=== PATIENT | female | born 1980 | race Caucasian/White ===

== ENCOUNTER 2016-09-11 13:56 | Inpatient (IN) ==
[2016-09-11] MEDS ORDERED: PROMETHAZINE 25 MG/1 ML VIAL IM ONE (14:45)
[2016-09-11] MEDS ORDERED: LACTATED RINGERS 250 ML IV PRN (14:45)
[2016-09-11] MEDS ORDERED: LACTATED RINGERS 1,000 ML IV ONE (14:45)
[2016-09-11] MEDS ORDERED: diphenhydrAMINE 50 MG/1 ML VIAL IV PRN ×2 (14:45)
[2016-09-11] MEDS ORDERED: hydrOXYzine HCL 25 MG/1 ML VIAL IM PRN (14:45)
[2016-09-11] MEDS ORDERED: ePHEDrine 50 MG/ML AMP IV PRN (14:45)
[2016-09-11] MEDS ORDERED: ONDANSETRON 4 MG/2 ML VIAL IV ONE (14:45)
[2016-09-11] MEDS ORDERED: fentaNYL 2 MCG/ROPIV 0.2% EPID 150 ML EPIDURAL SCH (14:45)
[2016-09-11] MEDS ORDERED: BUTORPHANOL 2 MG/ML VIAL IV PRN (15:00)
[2016-09-11] MEDS ORDERED: LACTATED RINGERS 1,000 ML IV SCH (15:00)
[2016-09-11] MEDS ORDERED: MEPERIDINE 50 MG/1 ML VIAL IV PRN (15:00)
[2016-09-11 15:19] LABS: Basophils % 0.3 % (0.0-0.8); Eosinophils # 0.1 10*3/uL (0.0-0.87); Eosinophils % 0.5 % (0.00-10.9); Hematocrit 33.5 VOL% (35.7-47.0); Hemoglobin 10.9 GM/DL (12.0-16.0); Immature Granulocytes % 1.2 %; Immature Granulocytes Absolute 0.13 #; Lymphocytes # 1.7 10*3/uL (1.4-4.0); Lymphocytes % 15.5 % (21.3-54.2); Mean Corpuscular HGB Conc 32.5 GM/DL (32-36); Mean Corpuscular Hemoglobin 26 PG (27-34); Mean Corpuscular Volume 80.3 FL (87-102); Monocytes # 0.6 10*3/uL (0.11-0.8); Monocytes % 5.3 % (1.7-12.7); Neutrophils # 8.3 10*3/uL (1.4-7.4); Neutrophils % 77.2 % (38.7-73.9); Platelet Count 207 T/CUMM (130-400); Red Blood Count 4.17 MC/CUMM (3.8-5.5); Red Cell Distribution Width 14.1 % (9.3-17.3); White Blood Count 10.8 T/CUMM (4-12)
[2016-09-11 15:30] LABS: INR 0.9; PT Patient Result 9.7 SECS; Partial Thromboplastin Time 28.5 SECS (0-40)
[2016-09-11] MEDS: LACTATED RINGERS 1,000 ML IV SCH ×2 (15:30→18:50)
[2016-09-11 15:48] LABS: Alanine Aminotransferase 13 U/L (13-56); Albumin 2.9 G/DL (3.4-5.0); Alkaline Phosphatase 143 U/L (45-117); Aspartate Amino Transferase 12 U/L (0-37); Bilirubin,Total < 0.39 MG/DL (0.2-1.0); Blood Urea Nitrogen 5 MG/DL (7-18); Calcium 8.5 MG/DL (8.5-10.1); Glucose 77 MG/DL (74-106); Osmolality,Calculated 278.1 MOS/KG (273-304); Potassium 4.1 MMOL/L (3.5-5.1); Sodium 142 MMOL/L (136-145); Uric Acid 4.5 MG/DL (2.6-6.0)
[2016-09-11] MEDS: ONDANSETRON 4 MG/2 ML VIAL IV PRN ×2 (16:03→21:27)
--- NOTE | 2016-09-11 16:26 | OB/GYN History & Physical ---
History of Present Illness Chief complaint: In with c/o SROM History of present illness: Ms. Odell is a 35 year old female who is a primigravida. ALISSON 09/20/16 estimated gestational age of 38 and 4 weeks who presents to the labor department with spontaneous rupture of membranes. The risk and benefits have been thoroughly discussed with this patient and significant other and plan of care has been discussed with Dr. Daniel in all parties are in agreement with plan. Patient received her care at [facility] [place], she received routine care and her course was uneventful. labs she is a positive, rubella immune, serologies nonreactive, hepatitis B negative, HIV negative, GBS culture negative. Review of systems is negative with the exception of above. The patient also has a history of hypertension which was controlled with antihypertensives. Home Medications Medication Instructions Recorded Confirmed Type Folic Acid Tab 1 tablet PO DAILY 08/28/16 08/28/16 History Labetalol Tab [Trandate Tab] 1 tablet PO DAILY 08/28/16 08/28/16 History Pnv No.122/Iron/Folic Acid 1 tablet PO DAILY 08/28/16 08/28/16 History [ Multi Tablet] Propranolol Tab [Inderal Tab] 1 tablet PO DAILY 08/28/16 08/28/16 History Allergies Allergy/AdvReac Type Severity Reaction Status Date / Time Sulfa (Sulfonamide Allergy Severe RASH Verified 08/28/16 16:16 Antibiotics) 12 point system: reviewed and no additional remarkable complaints except as stated Medical,Surgical,& Family Hx - Medical History Cardio: History of: Hypertension - Surgical History Additional Surgical History: femoral hernia repair 2000 - Family History Family History: Reports;: Family Hypertension (parents) - Social History Smoking Status: Never smoker Marital Status: Lives With:: Spouse Functional capacity: independent ambulation 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 General appearance: no acute distress - Antepartum / Post Antepartum Exam Cervix -Dilatation: 2 cm Effacement: 70% Station: -2 Rupture: SROM with clear fluid Breast: bilateral: normal Abdomen obstetrics: Present: bowel sounds normal Vagina: Present: normal moisture Uterus exam: Present: enlarged Anus/Rectum: Present: normal perianal skin - Respiratory Respiratory exam: Present: clear to auscultation bilaterally - Cardiovascular Cardiovascular exam: Present: regular rate and rhythm - GI/Abdominal GI/Abdominal exam: Present: normal bowel sounds, soft - Extremities Exam Extremities exam: Present: normal inspection - Neurological Exam Neurological exam: Present: alert, oriented X3 - Psychiatric Psychiatric exam: Present: normal affect, normal mood - Skin Skin exam: Present: normal color, warm Assessment and Plan (1) Term Status: Acute Assessment and plan: Admit IV fluids IV Pitocin per protocol Epidural if desired IV abx if appropriate Anticipate Current Visit: Yes (2) Spontaneous rupture of membranes Status: Acute Assessment and plan: Same as above Current Visit: Yes Results - Labs CBC & BMP: 09/11/16 15:10 09/11/16 15:10 Quality Measures - VTE Contraindication to Pharmacological VTE Prophylaxis: Clinical assessment deems Pt at low risk, no prophalaxis needed
[2016-09-11] MEDS ORDERED: OXYTOCIN 10 UNIT/ML VIAL IM ONE (16:36)
[2016-09-11] MEDS ORDERED: CITRIC ACID/SODIUM CITRATE 30 ML UDCUP ONE (16:48)
[2016-09-11] MEDS ORDERED: FAMOTIDINE 20 MG/2 ML VIAL IV ONE (16:49)
[2016-09-11] MEDS ORDERED: CITRIC ACID/SODIUM CITRATE 30 ML UDCUP PO ONE (16:52)
[2016-09-11] MEDS ORDERED: OXYTOCIN/LR 20 UNIT/1,000 ML BAG IV SCH (19:00)
[2016-09-12] MEDS ORDERED: METHYLERGONOVINE 0.2 MG/1 ML AMP ONE (00:29)
[2016-09-12] MEDS ORDERED: LIDOCAINE 1% 50 ML VIAL ONE (00:29)
[2016-09-12] MEDS ORDERED: miSOPROStol 200 MCG TABLET ONE (00:29)
[2016-09-12] MEDS ORDERED: OXYTOCIN/LR 30 UNIT/1,000 ML BAG IV STA (04:14)
[2016-09-12] MEDS ORDERED: SODIUM CHLORIDE 0.9% 250 ML IV PRN (04:19)
[2016-09-12] MEDS ORDERED: LANOLIN 50% CREAM 0.3 OZ TUBE TOP PRN (04:31)
[2016-09-12] MEDS ORDERED: BISACODYL 10 MG SUPP RECTAL PRN (04:31)
[2016-09-12] MEDS ORDERED: DIPH/TET/ACEL PERT BOOSTER VACCINE 0.5 ML VIAL IM ONE (04:31)
[2016-09-12] MEDS ORDERED: MEASLES/MUMPS/RUBELLA VACCINE 0.5 ML VIAL SUBCUT ONE (04:31)
[2016-09-12] MEDS ORDERED: RHO(D) IMMUNE GLOBULIN 300 MCG SYRINGE IM ONE (04:31)
[2016-09-12] MEDS ORDERED: HYDROCORTISONE 2.5% RECTAL CREAM 30 GM TUBE TOP PRN (04:31)
[2016-09-12] MEDS ORDERED: WITCH HAZEL PADS 100/JAR TOP PRN (04:31)
[2016-09-12] MEDS ORDERED: ACETAMINOPHEN 325 MG TABLET PO PRN (04:31)
[2016-09-12] MEDS ORDERED: ONDANSETRON 4 MG/2 ML VIAL IV PRN (04:31)
[2016-09-12] MEDS ORDERED: OXYTOCIN/LR 20 UNIT/1,000 ML BAG IV ONE (04:31)
[2016-09-12] MEDS ORDERED: BENZOCAINE 20%/MENTHOL 0.5% SPRAY 56 GM CAN TOP PRN (04:31)
--- NOTE | 2016-09-12 04:31 | Event Note ---
Delivery note Stage I of labor Patient admitted with spontaneous rupture membranes IV Pitocin Epidural anesthetic heart tones category 1 Estimated gestational age is 39 weeks and 2 days Stage II LML episiotomy Vacuum application 3, no pop off, applied at +2 station, occiput posterior Female delivered at 355 a.m., 7 lbs. 15 oz., Apgars were 8 at 1 minute 9 at 5 minutes Stage III Manual removal of the placenta, multiple fragments were removed, curettage was performed Episiotomy was repaired with 2-0 Vicryl and 3-0 chromic Placenta was sent to lab for further evaluation Mother was slightly diaphoretic, IV fluids, IV Pitocin 30 units in a liter was applied Typed and crossed for 2 units 1 was initiated. Mother and are stable
[2016-09-12 04:42] LABS: Cord Venous Blood HCO3 18.9 MMOL/L; Cord Venous Blood PCO2 42.2 MMHG; Cord Venous Blood PO2 25.9
[2016-09-12] MEDS: AMPICILLIN INJ 2,000 MG in SODIUM CHLORIDE 0.9% 100 ML IV SCH ×2 (04:46→11:30)
[2016-09-12 05:26] LABS: Basophils % 0.1 % (0.0-0.8); Hematocrit 28.5 VOL% (35.7-47.0); Hemoglobin 9.4 GM/DL (12.0-16.0); Immature Granulocytes % 1.1 %; Immature Granulocytes Absolute 0.26 #; Lymphocytes # 1.1 10*3/uL (1.4-4.0); Lymphocytes % 4.7 % (21.3-54.2); Mean Corpuscular Hemoglobin 27 PG (27-34); Mean Corpuscular Volume 80.5 FL (87-102); Mean Platelet Volume 12.2 FL (9.6-12.0); Monocytes # 1.2 10*3/uL (0.11-0.8); Monocytes % 5.3 % (1.7-12.7); Neutrophils # 20.7 10*3/uL (1.4-7.4); Neutrophils % 88.8 % (38.7-73.9); Platelet Count 177 T/CUMM (130-400); Red Blood Count 3.54 MC/CUMM (3.8-5.5); White Blood Count 23.3 T/CUMM (4-12)
[2016-09-12 05:47] LABS: Band Neutrophils 2 % (0-10); Hypochromasia Slight; Lymphocytes 4 % (20-55); Microcytosis 1+; Platelet Estimate Adequate; Segmented Neutrophils 87 % (50-85); Total Cells Counted 100
[2016-09-12] MEDS ORDERED: OXYTOCIN/LR 30 UNIT/1,000 ML BAG IV ONE (08:02)
[2016-09-12] MEDS: oxyCODONE/ACETAMINOPHEN 5-325 MG TABLET PO PRN ×3 (08:47→21:30)
[2016-09-12] MEDS: IBUPROFEN 800 MG TABLET PO PRN (15:55)
[2016-09-12] MEDS: DOCUSATE SODIUM 100 MG CAPSULE PO SCH ×2 (18:37→21:30)
[2016-09-12 19:29] LABS: Basophils # 0.1 10*3/uL (0.0-0.2); Basophils % 0.3 % (0.0-0.8); Eosinophils # 0.1 10*3/uL (0.0-0.87); Eosinophils % 0.3 % (0.00-10.9); Hematocrit 30.7 VOL% (35.7-47.0); Hemoglobin 10.1 GM/DL (12.0-16.0); Immature Granulocytes % 1.1 %; Lymphocytes # 2.3 10*3/uL (1.4-4.0); Lymphocytes % 12.3 % (21.3-54.2); Mean Corpuscular HGB Conc 32.9 GM/DL (32-36); Mean Corpuscular Hemoglobin 27 PG (27-34); Mean Corpuscular Volume 81.9 FL (87-102); Mean Platelet Volume 11.2 FL (9.6-12.0); Monocytes % 5.4 % (1.7-12.7); Neutrophils # 15.2 10*3/uL (1.4-7.4); Neutrophils % 80.6 % (38.7-73.9); Platelet Count 231 T/CUMM (130-400); Red Blood Count 3.75 MC/CUMM (3.8-5.5); Red Cell Distribution Width 14.8 % (9.3-17.3); White Blood Count 18.9 T/CUMM (4-12)
[2016-09-13 06:13] LABS: Basophils % 0.3 % (0.0-0.8); Eosinophils # 0.2 10*3/uL (0.0-0.87); Eosinophils % 1.1 % (0.00-10.9); Immature Granulocytes % 1.7 %; Immature Granulocytes Absolute 0.25 #; Lymphocytes # 2.9 10*3/uL (1.4-4.0); Lymphocytes % 19.1 % (21.3-54.2); Mean Corpuscular HGB Conc 33.3 GM/DL (32-36); Mean Corpuscular Hemoglobin 27 PG (27-34); Mean Corpuscular Volume 81.1 FL (87-102); Mean Platelet Volume 12.1 FL (9.6-12.0); Monocytes # 0.8 10*3/uL (0.11-0.8); Monocytes % 5.1 % (1.7-12.7); Neutrophils # 10.9 10*3/uL (1.4-7.4); Neutrophils % 72.7 % (38.7-73.9); Platelet Count 172 T/CUMM (130-400); Red Blood Count 3.33 MC/CUMM (3.8-5.5); Red Cell Distribution Width 14.9 % (9.3-17.3)
[2016-09-13] MEDS: DOCUSATE SODIUM 100 MG CAPSULE PO SCH ×2 (08:40→21:31)
[2016-09-13] MEDS: IBUPROFEN 800 MG TABLET PO PRN ×3 (08:41→21:32)
[2016-09-13] MEDS: oxyCODONE/ACETAMINOPHEN 5-325 MG TABLET PO PRN ×3 (08:42→21:32)
--- NOTE | 2016-09-13 10:01 | Anesthesia ---
Anesthesia Post OP - Post Ansesthetic Evaluation Patient seen in post op: Yes Resp: within normal limits CV: within normal limits Mental: within normal limits Temp: within normal limits [id number]: within normal limits Nausea and Vomiting: within normal limits Pain: within normal limits
[2016-09-13] MEDS: FERROUS SULFATE 325 MG TABLET PO SCH ×2 (10:04→21:31)
--- NOTE | 2016-09-13 11:35 | OB/GYN Progress Note ---
Assessment and Plan (1) Term Status: Acute Assessment and plan: Admit IV fluids IV Pitocin per protocol Epidural if desired IV abx if appropriate Anticipate Current Visit: Yes (2) Spontaneous rupture of membranes Status: Acute Assessment and plan: Same as above Current Visit: Yes (3) Vaginal delivery Status: Acute Assessment and plan: Initiate routine orders. 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 Bonding well with . 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 - Constitutional Vitals: Vital Signs Temp Pulse Pulse Resp BP BP Pulse Ox 09/13/16 07:34 97.2 F L 79 18 110/71 98 09/13/16 04:00 97.2 F L 65 18 105/59 99 09/13/16 02:00 18 09/13/16 00:00 97.2 F L 75 18 119/76 99 09/12/16 21:00 86 20 09/12/16 20:00 97.5 F L 86 20 130/81 99 09/12/16 16:00 97.6 F 98 H 20 121/77 99 09/12/16 14:15 98.6 F 91 H 20 117/75 97 09/12/16 14:00 20 09/12/16 13:00 97 F L 86 22 109/65 09/12/16 11:58 97.1 F L 107 H 20 133/76 General appearance: no acute distress - Antepartum / Post Post Exam Breast: bilateral: normal Abdomen obstetrics: Present: bowel sounds normal Vulva: bilateral: normal Vagina: Present: normal moisture, discharge (light lochia rubra) Uterus exam: Present: enlarged (ff ml) Anus/Rectum: Present: normal perianal skin - Head Head exam: Present: normal inspection - Respiratory Respiratory exam: Present: clear to auscultation bilaterally - Cardiovascular Cardiovascular exam: Present: regular rate and rhythm - GI/Abdominal GI/Abdominal exam: Present: normal bowel sounds, soft - Extremities Exam Extremities exam: Present: normal inspection - Neurological Exam Neurological exam: Present: alert, oriented X3 - Psychiatric Psychiatric exam: Present: normal affect, normal mood - Skin Skin exam: Present: normal color, warm Results - Labs CBC & BMP: 09/13/16 06:00 09/11/16 15:10
[2016-09-14 08:20] VITALS: BP 127/89
[2016-09-14] MEDS: FERROUS SULFATE 325 MG TABLET PO SCH (09:20)
[2016-09-14] MEDS: DOCUSATE SODIUM 100 MG CAPSULE PO SCH (09:20)
--- NOTE | 2016-09-16 12:41 | Pathology Report from [facility] ---
ACCESSION # : [id number] PATIENT NAME : Ashanti Salas ORDERING DR : MARJORIE MONET MD CLINICAL HX: IUP @ 39.3 wks gestation, variable decels POST-OP DX: Same SPECIMEN INFO: Placenta GROSS DESCRIPTION: Received fresh labeled "ASHANTI SALAS & PLACENTA" is a fragmented placenta weighing 515 gms and measuring 19.0 x 14.5 x 5.5 cm in aggregate. The membranes are red raymundo and translucent. The umbilical cord measures 31.0 cm, contains three vessels and is received separate from the placenta. Sectioning reveals no gross abnormalities. Sections submitted A- membranes and cord, B- and maternal surfaces. DIAGNOSIS FOR ASHANTI SALAS: PLACENTA, MEMBRANES, UMBILICAL CORD: Focal placental infarction, mild intervillous blood. Tri-vessel umbilical cord. Membranes with focal chronic inflammation and attached blood. SERVICE DATE: 09/13/2016 REPORT DATE: 09/16/2016 PATHOLOGIST: Su Zapata
--- NOTE | 2016-12-09 07:23 | Discharge Summary ---
This patient is 35 years of age, 38 weeks and 4 days, presented to Labor and Delivery with spontaneous rupture of membranes. Her EDC was 09/20/16. This patient progressed in labor at approximately 3:55 a.m. She delivered a 7-pound 15-ounce with assistance of a vacuum extraction at +2 station. Infant was occiput posterior. This patient's Apgars were 8 at 1 minute and 9 at 5. We had a manual removal of the placenta with multiple fragments. We also had curettage was performed. She remained in the hospital for two days and was discharged. She had thorough instructions given. She was afebrile. She was stable. Her hemoglobin and hematocrit at the time of discharge were 9 and 27, where she received iron therapy, Motrin, and Tylenol No. 3. Patient instructions were given and she was in complete agreement. WILLY
== END 2016-09-14 10:38 | disposition home or self-care (01) | DRG 767 ==
LOC: N.LDOUT 13:56 → N.LD 13:57 → N.OB 09-12 14:06
PROVIDERS: ADMIT Obstetrics & Gynecology; ATTEND Obstetrics & Gynecology